=== PATIENT | female | born 1965 | race Caucasian/White ===

== ENCOUNTER 2019-01-19 19:29 | Emergency (ER) | payer OTHER ==
[2019-01-19 19:41] VITALS: BP 105/78; PULSE 82; TEMP 98; BMI 23.8
--- NOTE | 2019-01-19 20:51 | PDOC ---
History of Present Illness - General Chief Complaint: Headache Stated Complaint: LIGHT HEADED/leg pain History Source: Patient Exam Limitations: No Limitations - History of Present Illness Initial Comments: 01/19/19 20:38 Patient is a 53 year old female with h/o post concussion 2018, hypothyroid, COPD /Asthma, gastritis/IBS, arthritis, herniated disc, carpel tunnel, rotator cuff, hiatal hernia, lipoma excision, lumpectomy benign breast, c/o headache, diarrhea , lightheadness- dizziness, sciatia pain since 01/17/19. Headache has been intermittent and thought was related to her postconcussion syndrome. Her sciatica pain has been continuous, described it as sharp /10, which is in the left lower back and radiates down the left thigh. Took gabapentin without relief , heating pad, diclofenac. Thought her symptoms are related to the removal of a lipoma done on 01/07/19. States symptoms are related to some nausea, no vomiting, (+) diarrhea - but does not the diarrhea was related to her IBS, since she missed a dose Lynsess. Has had a colonoscopy in the past which showed polyps and diverticulosis. Denies fever, chills, dysuria. PMD: PMHX: As above PSOCHX: (+) cig ALL: NKDA 01/19/19 23:30 GENERAL/CONSTITUTIONAL: [No fever or chills. No weakness. No weight change.] HEAD, EYES, EARS, NOSE AND THROAT: [No change in vision. No ear pain or discharge. No sore throat.] CARDIOVASCULAR: [No chest pain or shortness of breath.] RESPIRATORY: [No cough, wheezing, or hemoptysis.] GASTROINTESTINAL: (+) nausea, vomiting, diarrhea or constipation. No rectal bleeding.] GENITOURINARY: [No dysuria, frequency, or change in urination.] MUSCULOSKELETAL: [No joint or muscle swelling or pain. No neck (+) back pain.] SKIN AND BREASTS: [No rash or easy bruising.] NEUROLOGIC: [(+) headache, vertigo, loss of consciousness, or loss of sensation. ] PSYCHIATRIC: [No depression or anxiety.] ENDOCRINE: [No increased thirst. No abnormal weight change.] HEMATOLOGIC/LYMPHATIC: [No anemia, easy bleeding, or history of blood clots.] ALLERGIC/IMMUNOLOGIC: [No hives or skin allergy. No latex allergy.] GENERAL: [The patient is awake, alert, and fully oriented, in no acute distress. ] HEAD: [Normal with no signs of trauma.] EYES: [Pupils equal, round and reactive to light, extraocular movements intact, sclera anicteric, conjunctiva clear.] ENT: [Ears normal, nares patent, oropharynx clear without exudates. Moist mucous membranes.] NECK: [Normal range of motion, supple without lymphadenopathy, JVD, or masses.] LUNGS: [Breath sounds equal, clear to auscultation bilaterally. No wheezes, and no crackles.] HEART: [Regular rate and rhythm, normal S1 and S2 without murmur, rub.] ABDOMEN: [Soft, (+)tenderness LLQ, normoactive bowel sounds. No guarding, no rebound. No masses.] EXTREMITIES: [Normal range of motion, no edema. No clubbing or cyanosis. No cords, erythema, or tenderness.] NEUROLOGICAL: [Cranial nerves II through XII grossly intact. Normal speech, normal gait, (-) nystagmus.] PSYCH: [Normal mood, normal affect.] SKIN: [Warm, Dry, normal turgor, no rashes or lesions noted.] Past History - Past Medical History Allergies/Adverse Reactions: Allergies Allergy/AdvReac Type Severity Reaction Status Date / Time No Known Allergies Allergy Verified 01/19/19 19:41 Home Medications: Ambulatory Orders Albuterol Sulfate 0.5% [Ventolin 0.5%] 1 neb IH QID PRN 10/29/12 Gabapentin [Neurontin] 300 mg PO TID 10/29/12 Mometasone Furoate [Nasonex] 1 - 2 inh NS BID 10/29/12 Montelukast Na [Singulair] 10 mg PO HS 10/29/12 Morphine *Sr* [Ms Contin] 15 mg PO BID 10/29/12 Omeprazole [Prilosec (RX)] 40 mg PO DAILY 10/29/12 Salmeterol/Fluticasone [Advair 500Mcg/50Mcg] 1 inh PO BID 10/29/12 Albuterol Sulfate [Proair Hfa -] 1 - 2 inh PO TID 04/13/15 Budesonide/Formeterol Fumarate [SYMBICORT 160/4.5mcg -] 1 inh IH DAILY PRN 04/13 Diclofenac Sodium 100 mg PO DAILY 04/13/15 Fluoxetine HCl [Prozac] 10 mg PO DAILY 04/13/15 Levothyroxine [Synthroid -] 175 mcg PO DAILY 04/13/15 Oxycodone HCl 15 mg PO QID 04/13/15 Tizanidine HCl 2 mg PO TID 04/13/15 Zolpidem Tartrate [Ambien] 5 mg PO HS PRN 04/13/15 hydrOXYzine HCL [Atarax -] 25 mg PO DAILY 04/13/15 COPD: Yes GI Disorders: Yes (GERD) Hypercholesterolemia: Yes Thyroid Disease: Yes (hypothyroid) - Surgical History Abdominal Surgery: (CYSTS REMOVED FROM OVARIES) - Suicide/Smoking/Psychosocial Hx Smoking Status: Yes Smoking History: Unknown if ever smoked Have you smoked in the past 12 months: No Number of Cigarettes Smoked Daily: 10 Information on smoking cessation initiated: No Hx Alcohol Use: No Drug/Substance Use Hx: No Substance Use Type: Prescribed *Physical Exam - Vital Signs Last Vital Signs Temp Pulse Resp BP Pulse Ox 98.0 F 82 16 105/78 100 01/19/19 19:37 01/19/19 19:37 01/19/19 19:37 01/19/19 19:37 01/19/19 19:37 Moderate Sedation - Procedure Monitoring Vital Signs: Procedure Monitoring Vital Signs Temperature 98.0 F 01/19/19 19:37 Pulse Rate 82 01/19/19 19:37 Respiratory Rate 16 01/19/19 19:37 Blood Pressure 105/78 01/19/19 19:37 O2 Sat by Pulse Oximetry (%) 100 01/19/19 19:37 ED Treatment Course - LABORATORY CBC & Chemistry Diagram: 01/19/19 19:20 01/19/19 19:20 Medical Decision Making - Medical Decision Making 01/19/19 20:38 Patient is a 53 year old female with h/o post concussion 2018, hypothyroid, COPD /Asthma, gastritis/IBS, arthritis, herniated disc, carpel tunnel, rotator cuff, hiatal hernia, lipoma excision, lumpectomy benign breast, c/o headache, diarrhea , lightheadness- dizziness, sciatia pain since 01/17/19. Headache has been intermittent and thought was related to her postconcussion syndrome. Her sciatica pain has been continuous, described it as sharp /, which is in the left lower back and radiates down the left thigh. Took gabapentin without relief , heating pad, diclofenac. Thought her symptoms are related to the removal of a lipoma done on 01/07/19. States symptoms are related to some nausea, no vomiting, (+) diarrhea - but does not the diarrhea was related to her IBS, since she missed a dose Lynsess. Has had a colonoscopy in the past which showed polyps and diverticulosis. Denies fever, chills, dysuria. Concerns for diverticulitis, no concerns for ACS Labs CT abdomen 01/19/19 23:38 EKG: SER rate 69, NAD, T-wave inversion V1 through V4 01/20/19 01:34 Patient eloped prior to completion of workup *DC/Admit/Observation/Transfer Diagnosis at time of Disposition: Abdominal pain Qualifiers: Abdominal location: lower abdomen, unspecified Qualified Code(s): R10.30 - Lower abdominal pain, unspecified Headache Qualifiers: Headache type: unspecified Headache chronicity pattern: chronic headache Intractability: not intractable Qualified Code(s): R51 - Headache Chest pain Qualifiers: Chest pain type: unspecified Qualified Code(s): R07.9 - Chest pain, unspecified - Discharge Dispostion Disposition: ELOPED Condition at time of disposition: Stable - Referrals Referrals: Denis Amin MD [Primary Care Provider] - - Patient Instructions - Post Discharge Activity
[2019-01-19] MEDS ORDERED: SODIUM CHLORIDE 0.9% 500 ML INFUS.BAG IV ONE (20:53)
[2019-01-19] MEDS ORDERED: KETOROLAC TROMETHAMINE 30 MG/1 ML VIAL IVPUSH ONE (20:53)
[2019-01-19] MEDS ORDERED: KETOROLAC TROMETHAMINE 30 MG/1 ML VIAL ONE (21:07)
[2019-01-19 21:43] LABS: BASO % 1.1 % (0-2.0); EOS % 2.1 % (0-4.5); HEMATOCRIT 41.4 % (32.4-45.2); HEMOGLOBIN 14.4 GM/dL (10.7-15.3); LYMPH % 29.4 % (8-40); MCH 32.4 pg (25.7-33.7); MCHC 34.7 g/dl (32.0-36.0); MEAN CELL VOLUME 93.3 fl (80-96); MEAN PLT VOLUME 8.6 fl (7.5-11.1); MONO % 8.8 % (3.8-10.2); NEUT % 58.6 % (42.8-82.8); PLATELET COUNT 330 K/MM3 (134-434); RBC 4.44 M/mm3 (3.60-5.2); RDW 12.5 % (11.6-15.6); WHITE BLOOD COUNT 8.5 K/mm3 (4.0-10.0)
[2019-01-19 22:07] LABS: ALBUMIN 3.8 g/dl (3.4-5.0); ALK PHOS 110 U/L (45-117); ANION GAP 8 MMOL/L (8-16); BILIRUBIN,TOTAL 0.1 mg/dL (0.2-1); BLOOD UREA NITROGEN 25 mg/dL (7-18); CALCIUM 9.2 mg/dL (8.5-10.1); CHLORIDE 103 mmol/L (98-107); CO2 27 mmol/L (21-32); CREATININE 1.7 mg/dL (0.55-1.3); GLUCOSE,RANDOM 92 mg/dL (74-106); LIPASE 349 U/L (73-393); POTASSIUM 4.6 mmol/L (3.5-5.1); SGOT/AST 24 U/L (15-37); SGPT/ALT 23 U/L (13-61); SODIUM 138 mmol/L (136-145); TOT PROT 7.5 g/dl (6.4-8.2)
--- NOTE | 2019-01-21 22:03 | EKG ---
Test Reason : Blood Pressure : / mmHG Vent. Rate : 069 BPM Atrial Rate : 069 BPM P-R Int : 178 ms QRS Dur : 102 ms QT Int : 412 ms P-R-T Axes : 078 059 067 degrees QTc Int : 441 ms NORMAL SINUS RHYTHM POSSIBLE ANTERIOR INFARCT , AGE UNDETERMINED ABNORMAL ECG WHEN COMPARED WITH ECG OF 13-APR-2015 20:01, NO SIGNIFICANT CHANGE WAS FOUND Confirmed by MD MANUELA, RUBÉN ([id number]) on 01/21/2019 10:03:24 PM Referred By: Confirmed By:RUBÉN ROY MD
== END 2019-01-20 01:49 | disposition left against medical advice (07) ==
LOC: JER 19:29
PROC: 3E0333Z Introduction of Anti-inflammatory into Peripheral Vein, Percutaneous Approach (ICD-10-PCS; principal; 2019-01-19)
DX: R07.9 Chest pain, unspecified (principal); R10.30 Lower abdominal pain, unspecified; R51 Headache; J44.9 Chronic obstructive pulmonary disease, unspecified; J45.909 Unspecified asthma, uncomplicated; K21.9 Gastro-esophageal reflux disease without esophagitis; E03.9 Hypothyroidism, unspecified
CPT/HCPCS: 36415; 80053; 82550; 83690; 84484; 85025; 93005; 93010; 96374; 99281-25